=== PATIENT | female | born 1945 | race Caucasian/White ===

== ENCOUNTER → 2016-11-10 | Outpatient (CLI) | payer MEDICARE ==
[2016-11-10 15:43] LABS: MEAN CORPUSCULAR HEMOGLOBIN 30.4 PG (26.0-34.0); MEAN CORPUSCULAR HGB CONC 34.3 g/dL (31.0-37.0); MEAN CORPUSCULAR VOLUME 89 FL (80-100); MEAN PLATELET VOLUME 9.9 FL (6.0-9.5); PLATELET COUNT 274 10^3uL (150-450); WHITE BLOOD COUNT 10.51 10^3uL (4.0-11.0)
[2016-11-10 15:53] LABS: ALBUMIN 4.3 g/dL (3.4-5.0); ANION GAP 14.2 MEQ/L (3-15)
[2016-11-10 16:53] LABS: BAND NEUTROPHILS % 2 % (0-6); EOSINOPHILS % 0 % (0-4); MONOCYTES # 0.1 #; MONOCYTES % 1 % (3-11); RBC MORPH NORMAL (NORMAL); SEGMENTED NEUTROPHILS % 88 % (51-67); TOTAL CELLS COUNTED 100
[2016-11-10 16:55] LABS: ERYTHROCYTE SEDIMENTATION RT* 38 mm/hr (0-23)
== END ==
LOC: RAD 14:57
PROVIDERS: ATTEND Family Medicine
DX: J06.0 Acute laryngopharyngitis (principal); J01.40 Acute pansinusitis, unspecified; K59.01 Slow transit constipation; I47.1 Supraventricular tachycardia; R79.89 Other specified abnormal findings of blood chemistry; D50.8 Other iron deficiency anemias
CPT/HCPCS: 36415; 70220; 71010; 71020; 74000; 80053; 85025; 85652; 86140; 87040; 87486; 87581; 87633; 87798; 93005

== ENCOUNTER → 2016-11-13 | Outpatient (CLI) | payer MEDICARE | LOC: RAD 08:49 | PROVIDERS: ATTEND Family Medicine | DX: K80.50 Calculus of bile duct without cholangitis or cholecystitis without obstruction (principal) | CPT/HCPCS: 74170; Q9967 ==

== ENCOUNTER → 2016-11-19 | Outpatient (CLI) | payer MEDICARE ==
[2016-11-19 17:31] LABS: ALBUMIN 3.9 g/dL (3.4-5.0); ANION GAP 13.2 MEQ/L (3-15); CALCULATED IONIZED CALCIUM 4.2 mg/dL (3.8-4.6); TOTAL PROTEIN 7.2 g/dL (6.4-8.5)
== END ==
LOC: LAB 15:45
PROVIDERS: ATTEND Family Medicine
DX: R10.32 Left lower quadrant pain (principal); R79.89 Other specified abnormal findings of blood chemistry; B94.2 Sequelae of viral hepatitis; K71.2 Toxic liver disease with acute hepatitis
CPT/HCPCS: 36415; 72192; 80053; 82150; 82977; 83690

== ENCOUNTER → 2016-12-03 | Outpatient (CLI) | payer MEDICARE ==
[2016-12-03 16:29] LABS: TOTAL PROTEIN 7.2 g/dL (6.4-8.5)
== END ==
LOC: LAB 15:48
PROVIDERS: ATTEND Family Medicine
DX: B94.2 Sequelae of viral hepatitis (principal); K71.2 Toxic liver disease with acute hepatitis
CPT/HCPCS: 36415; 80076; 82977; 83690